=== PATIENT | male | born 1955 | race Caucasian/White ===

== ENCOUNTER 2016-10-15 08:25 | Day surgery (SDC) | payer OTHER ==
[~2016-10-15] VITALS: Ht 170.2 cm; Wt 88.6 kg
[2016-10-15 08:44] VITALS: Ht 170.2 cm; Wt 88.6 kg
[2016-10-15 09:17] VITALS: BP 170/84; PULSE 95; RESP 16
[2016-10-15] MEDS ORDERED: MIDAZOLAM 1 MG/ML 2 ML INJ ONE ×3 (09:53→09:54)
[2016-10-15] MEDS ORDERED: FENTAnyl 50 MCG/ML VIAL ONE (09:54)
[2016-10-15 10:10] VITALS: BP 123/70; PULSE 78; RESP 19
--- NOTE | 2016-10-15 14:09 | GILP ---
DATE OF PROCEDURE: 10/15/2016 NAME OF PROCEDURE: Colonoscopy. SURGEON: Myra Cedeno MD PREOPERATIVE DIAGNOSIS: Screening colonoscopy. POSTOPERATIVE DIAGNOSES: 1. Colonoscopy all the way to the cecum. 2. Diverticulosis of the colon. 3. Internal hemorrhoids. 4. No colon neoplasm was identified. INDICATION FOR THE PROCEDURE: Mr. Rome Farris is a 61-year-old male patient who was scheduled for tx reening colonoscopy. The procedure and possible complications were well explained to the patient, he understood and conse nted to the procedure. DESCRIPTION OF PROCEDURE: Under the influence of fentanyl and Versed, the colonoscope was carefully introduced in the rectum and under direct vision, it was advanced all the way to the cecum. FINDINGS: The patient had diverticulosis of the colon. He also had internal hemorrhoids. No neopl asm was identified. He tolerated the procedure very well and there was no complication from the procedure. At the end o f the procedure, he was awake with stable vital signs and he was discharged home to the care of his family. IMPRESSION: 1. Colonoscopy all the way to the cecum. 2. Internal hemorrhoids. 3. No colon neoplasm was identified. PLAN: 1. Next screening colonoscopy in 10 years. 2. High-fiber diet. Dictated By: MYRA SEGURA/PETERSON Conf#: [id number] DID#: [id number] CC: MYRA CEDENO MD;*EndCC*
== END 2016-10-15 10:13 | disposition home or self-care (01) ==
LOC: GIL 08:25
PROVIDERS: ATTEND Internal Medicine Gastroenterology
DX: Z12.11 Encounter for screening for malignant neoplasm of colon (principal); K57.90 Diverticulosis of intestine, part unspecified, without perforation or abscess without bleeding; K64.8 Other hemorrhoids
CPT/HCPCS: 45378; J2250; J3010; Z7610